=== PATIENT | female | born 1985 | race Caucasian/White ===

== ENCOUNTER 2019-08-02 11:52 | Emergency (ER) | payer MEDICAID ==
[~2019-08-02] VITALS: Ht 162.6 cm; Wt 54.0 kg
[2019-08-02 12:00] VITALS: BP 93/57
--- NOTE | 2019-08-02 12:18 | NUR ---
PT TO ROOM FROM LOBBY AT THIS TIME.
[2019-08-02] MEDS ORDERED: NAPROXEN 500 MG TABLET PO ONE (13:00)
[2019-08-02] MEDS ORDERED: NAPROXEN 500 MG TABLET ONE (13:15)
--- NOTE | 2019-08-02 13:28 | NUR ---
Patient/Caregiver given discharge instructions and they have confirmed that they understand the instructions. Patient ambulatory with steady gait.
== END 2019-08-02 13:29 | disposition home or self-care (01) ==
LOC: ED 13:18
DX: L72.3 Sebaceous cyst (principal)
CPT/HCPCS: 99283

== ENCOUNTER 2019-08-06 13:28 | Emergency (ER) | payer MEDICAID ==
[~2019-08-06] VITALS: Ht 162.6 cm; Wt 53.8 kg
[2019-08-06] MEDS ORDERED: LIDOCAINE 1%-EPI 1:100K, 20ML ONE (13:58)
[2019-08-06 15:26] VITALS: BP 132/71
== END 2019-08-06 15:28 | disposition home or self-care (01) ==
LOC: ED 15:27
DX: H66.42 Suppurative otitis media, unspecified, left ear (principal)
CPT/HCPCS: 69000; 99282

== ENCOUNTER 2019-08-08 10:25 | Emergency (ER) | payer MEDICAID ==
[~2019-08-08] VITALS: Ht 165.1 cm; Wt 52.4 kg
[2019-08-08 10:27] VITALS: BP 109/74
[2019-08-08] MEDS ORDERED: MORPHINE SULFATE 4 MG/ML, 1ML IVPush ONE (11:00)
== END 2019-08-08 11:24 | disposition home or self-care (01) ==
LOC: ED 10:50
DX: Z48.01 Encounter for change or removal of surgical wound dressing (principal)
CPT/HCPCS: 99282

== ENCOUNTER 2019-08-10 09:54 | Emergency (ER) | payer MEDICAID ==
[~2019-08-10] VITALS: Ht 162.6 cm; Wt 53.7 kg
[2019-08-10 10:00] VITALS: BP 104/65
== END 2019-08-10 10:24 | disposition home or self-care (01) ==
LOC: ED 10:19
DX: Z48.01 Encounter for change or removal of surgical wound dressing (principal)
CPT/HCPCS: 99281

== ENCOUNTER 2019-10-12 10:12 | Emergency (ER) | payer MEDICAID ==
[~2019-10-12] VITALS: Ht 162.6 cm; Wt 55.1 kg
[2019-10-12] MEDS ORDERED: METOCLOPRAMIDE 5 MG/ML, 2ML IVPush ONE (11:00)
[2019-10-12] MEDS ORDERED: SODIUM CHLORIDE 0.9% 1,000ML IVBOLUS ONE ×2 (11:00→12:00)
[2019-10-12] MEDS ORDERED: DIPHENHYDRAMINE 50 MG/ML, 1ML IVPush ONE (11:00)
--- NOTE | 2019-10-12 11:00 | NUR ---
Placed on droplet + precautions Ua sent piv placed from which labs were drawn Updated on estimated poc
[2019-10-12 11:25] LABS: BASOPHILS # (AUTO) 0.03 x10^3/uL (0-0.1); BASOPHILS % (AUTO) 0 % (0-1); EOSINOPHILS # (AUTO) 0.02 x10^3/uL (0-0.4); EOSINOPHILS % (AUTO) 0 % (1-7); LYMPHOCYTES # (AUTO) 1.73 x10^3/uL (1-3.4); LYMPHOCYTES % (AUTO) 18 % (22-44); MD NO; MEAN CORPUSCULAR HEMOGLOBIN 26.7 pg (27.0-34.8); MEAN CORPUSCULAR HGB CONC 31.4 g/dL (32.4-35.8); MEAN CORPUSCULAR VOLUME 85.3 fL (80-100); MEAN PLATELET VOLUME 8.2 fL (7.4-10.4); MONOCYTES # (AUTO) 0.86 x10^3/uL (0.2-0.8); MONOCYTES % (AUTO) 9 % (2-9); NEUTROPHILS # (AUTO) 7.19 x10^3/uL (1.8-6.8); NEUTROPHILS % (AUTO) 73 % (42-75); PLATELET COUNT 365 x10^3/uL (130-400)
[2019-10-12 11:37] LABS: MICROSCOPIC INDICATED
--- NOTE | 2019-10-12 11:42 | NUR ---
US TECH COMPLETE WITH PELVIC ULTRASOUND
[2019-10-12 11:50] LABS: ALANINE AMINOTRANSFERASE 12 U/L (12-78); ALBUMIN 4.2 g/dL (3.4-5.0); ANION GAP 8 mmol/L (5-15); CALCIUM 9.2 mg/dL (8.5-10.1); CHLORIDE 108 mmol/L (98-107)
[2019-10-12 11:52] LABS: ALKALINE PHOSPHATASE 57 U/L (45-117); BILIRUBIN,TOTAL 0.6 mg/dL (0.2-1.0); CREATININE 0.53 mg/dL (0.55-1.02); TOTAL PROTEIN 7.5 g/dL (6.4-8.2)
--- NOTE | 2019-10-12 11:58 | NUR ---
Medication re-assessment: nausea resolved. Patient reports " I feel much better" 1l ns complete as well Patient/family update don estimated poc (awaiting us results)
--- NOTE | 2019-10-12 12:05 | NUR ---
Medicated per emar with 2nd liter of ns
[2019-10-12 12:09] VITALS: BP 117/73
--- NOTE | 2019-10-12 12:20 | NUR ---
lab called to expedite chemistry results
--- NOTE | 2019-10-12 12:50 | NUR ---
po challenge and ropad test unremarkable Provider made aware
== END 2019-10-12 13:56 | disposition home or self-care (01) ==
LOC: ED 11:32
DX: O21.8 Other vomiting complicating pregnancy (principal); R19.7 Diarrhea, unspecified; R10.2 Pelvic and perineal pain; E86.0 Dehydration; R82.71 Bacteriuria; Z3A.01 Less than 8 weeks gestation of pregnancy
CPT/HCPCS: 36415; 76801; 80053; 81001; 83690; 84702; 85025; 87086; 96361; 96374; 96375; 99284; J1200; J2765; J7030

== ENCOUNTER 2019-11-20 12:30 | Emergency (ER) | payer MEDICAID ==
[~2019-11-20] VITALS: Ht 165.1 cm; Wt 56.6 kg
[2019-11-20 12:39] VITALS: BP 109/52
--- NOTE | 2019-11-20 12:48 | NUR ---
PT AMBULATED BACK TO ROOM WITHOUT DIFFICULTY.
[2019-11-20 13:23] LABS: MICROSCOPIC INDICATED
--- NOTE | 2019-11-20 13:30 | NUR ---
FABIANA BARBA AT FOR RECHECK.
--- NOTE | 2019-11-20 13:54 | NUR ---
D/C INSTRUCTIONS, MEDS & F/U APPT'S RV'WD WITH PT, SHE VERBALIZES UNDERSTANDING. RX GIVEN X2. PT AMBULATED OUT OF ED WITH FRIEND WITHOUT DIFFICULTY.
== END 2019-11-20 13:55 | disposition home or self-care (01) ==
LOC: ED 13:48
DX: O34.82 Maternal care for other abnormalities of pelvic organs, second trimester (principal); O99.332 Smoking (tobacco) complicating pregnancy, second trimester; Z3A.14 14 weeks gestation of pregnancy
CPT/HCPCS: 81001; 87086; 99283